=== PATIENT | male | born 1970 | race American Indian/Alaskan Native ===

== ENCOUNTER 2021-09-02 08:02 | Observation (INO) | payer BC ==
[2021-09-02] MEDS ORDERED: SODIUM CHLORIDE 0.9% 1000 ML 1,000 ML IV ONE ×5 (08:34→14:47)
--- NOTE | 2021-09-02 09:36 | Emergency Department Report ---
ED Eye Problem HPI - General Chief complaint: Hyperglycemia Stated complaint: UNABLE TO SEE Time Seen by Provider: 09/02/21 08:37 Source: patient, family Mode of arrival: Ambulatory Limitations: Other - History of Present Illness Initial comments: 51-year-old male with a past medical history of obesity, hypertension, CAD with stent placement, and asthma presents to the hospital with complaints of visual changes progressively worsening for several days. Patient states his vision has been blurry for the last 3 days but today while at work he was unable to see anything but colors. Patient states he cannot define shapes. For last several weeks he has had increased thirst, polyuria, and polydipsia. Accu-Chek upon arrival is high. No previous diagnosis of diabetes prior to today. Patient was here August 17 under the name: Dhruv Stephen III with an alternative medical record number. Use prescribed empiric antibiotics for tonsillitis at that time and hydrocodone for pain. Patient discontinued medication because he felt they were causing his current symptoms. He does report that his dental pain did improve. No fever reported - Related Data Allergies Allergy/AdvReac Type Severity Reaction Status Date / Time No Known Allergies Allergy Unverified 09/02/21 08:31 ED Review of Systems ROS: Stated complaint: UNABLE TO SEE Other details as noted in HPI Comment: All other systems reviewed and negative ED Past Medical Hx - Past Medical History Previous Medical History?: Yes Hx Hypertension: Yes Hx Asthma: Yes - Surgical History Hx Coronary Stent: Yes - Social History Smoking Status: Current Every Day Smoker Substance Use Type: None ED Physical Exam - General Limitations: Other - Other Other exam information: General: No acute distress Head: Atraumatic Eyes: normal appearance ENT: Dry mucous membrane Neck: Normal appearance, no midline tenderness Chest: Clear to auscultation bilaterally CV: Regular rate and rhythm Abdomen: Soft, normal bowel sounds, nontender, nondistended, no rebound or gua rding Back: Normal inspection Extremity: Normal inspection, full range of motion Neuro: Alert O x 3, no facial asymmetry, speech clear, no gross motor sensory deficit Psych: Appropriate behavior Skin: No rash ED Course Vital Signs 09/02/21 09/02/21 09/02/21 08:22 08:57 08:59 Temperature 98.1 F Pulse Rate 88 78 75 Respiratory 20 13 12 Rate Blood Pressure 113/80 122/78 122/78 O2 Sat by Pulse 96 94 96 Oximetry 09/02/21 09/02/21 09/02/21 09:01 09:03 09:05 Temperature Pulse Rate 75 68 70 Respiratory 8 L 16 20 Rate Blood Pressure 122/78 122/78 122/78 O2 Sat by Pulse 96 94 93 Oximetry 09/02/21 09/02/21 09/02/21 09:07 09:09 09:11 Temperature Pulse Rate 69 72 73 Respiratory 19 17 20 Rate Blood Pressure 122/78 122/78 122/78 O2 Sat by Pulse 93 94 95 Oximetry 09/02/21 09/02/21 09/02/21 09:13 09:15 09:17 Temperature Pulse Rate 69 68 75 Respiratory 20 21 17 Rate Blood Pressure 122/78 122/78 122/78 O2 Sat by Pulse 92 93 91 Oximetry 09/02/21 09/02/21 09/02/21 09:19 09:21 09:23 Temperature Pulse Rate 73 73 74 Respiratory 18 17 21 Rate Blood Pressure 122/78 122/78 122/78 O2 Sat by Pulse 92 95 96 Oximetry 09/02/21 09/02/21 09/02/21 09:24 09:25 09:27 Temperature Pulse Rate 73 73 71 Respiratory 18 15 15 Rate Blood Pressure 135/89 135/89 135/89 O2 Sat by Pulse 94 95 94 Oximetry 09/02/21 09/02/21 09/02/21 09:29 09:31 09:33 Temperature Pulse Rate 81 71 65 Respiratory 19 18 15 Rate Blood Pressure 135/89 135/89 135/89 O2 Sat by Pulse 95 97 97 Oximetry 09/02/21 09/02/21 09/02/21 09:35 09:37 09:39 Temperature Pulse Rate 73 77 74 Respiratory 18 20 13 Rate Blood Pressure 135/89 135/89 135/89 O2 Sat by Pulse 95 96 95 Oximetry 09/02/21 09/02/21 09/02/21 09:41 09:43 09:45 Temperature Pulse Rate 88 77 68 Respiratory 25 H 15 19 Rate Blood Pressure 135/89 135/89 135/89 O2 Sat by Pulse 94 93 93 Oximetry 09/02/21 09/02/21 09/02/21 09:47 10:15 10:17 Temperature Pulse Rate 72 68 71 Respiratory 12 19 17 Rate Blood Pressure 135/89 141/94 141/94 O2 Sat by Pulse 96 88 93 Oximetry 09/02/21 09/02/21 09/02/21 10:19 10:21 10:23 Temperature Pulse Rate 73 71 71 Respiratory 18 21 15 Rate Blood Pressure 141/94 141/94 141/94 O2 Sat by Pulse 93 91 96 Oximetry 09/02/21 09/02/21 09/02/21 10:24 10:25 10:27 Temperature Pulse Rate 69 72 75 Respiratory 14 13 16 Rate Blood Pressure 126/77 126/77 126/77 O2 Sat by Pulse 94 94 94 Oximetry 09/02/21 09/02/21 09/02/21 10:29 10:31 10:33 Temperature Pulse Rate 69 68 62 Respiratory 13 13 21 Rate Blood Pressure 126/77 126/77 126/77 O2 Sat by Pulse 93 96 96 Oximetry 09/02/21 09/02/21 09/02/21 10:35 10:37 10:39 Temperature Pulse Rate 76 77 73 Respiratory 23 17 21 Rate Blood Pressure 126/77 126/77 126/77 O2 Sat by Pulse 94 97 93 Oximetry 09/02/21 09/02/21 09/02/21 10:41 10:43 10:45 Temperature Pulse Rate 81 70 64 Respiratory 14 15 15 Rate Blood Pressure 126/77 126/77 126/77 O2 Sat by Pulse 95 94 91 Oximetry 09/02/21 09/02/21 09/02/21 10:47 10:49 10:51 Temperature Pulse Rate 66 70 77 Respiratory 16 15 17 Rate Blood Pressure 126/77 126/77 126/77 O2 Sat by Pulse 93 97 96 Oximetry 09/02/21 09/02/21 09/02/21 10:53 10:54 10:55 Temperature Pulse Rate 65 71 68 Respiratory 19 17 19 Rate Blood Pressure 126/77 120/76 120/76 O2 Sat by Pulse 95 93 94 Oximetry 09/02/21 09/02/21 09/02/21 10:57 10:59 11:01 Temperature Pulse Rate 68 75 61 Respiratory 18 21 19 Rate Blood Pressure 120/76 120/76 120/76 O2 Sat by Pulse 95 93 94 Oximetry 09/02/21 09/02/21 09/02/21 11:03 11:05 11:07 Temperature Pulse Rate 74 77 71 Respiratory 18 22 20 Rate Blood Pressure 120/76 120/76 120/76 O2 Sat by Pulse 94 92 90 Oximetry 09/02/21 09/02/21 09/02/21 11:09 11:11 11:13 Temperature Pulse Rate 73 68 67 Respiratory 20 16 20 Rate Blood Pressure 120/76 120/76 120/76 O2 Sat by Pulse 92 91 93 Oximetry 09/02/21 09/02/21 09/02/21 11:15 11:17 11:19 Temperature Pulse Rate 71 65 71 Respiratory 19 15 18 Rate Blood Pressure 120/76 120/76 120/76 O2 Sat by Pulse 95 95 96 Oximetry 09/02/21 09/02/21 09/02/21 11:21 11:23 11:24 Temperature Pulse Rate 71 71 75 Respiratory 15 21 19 Rate Blood Pressure 120/76 120/76 130/88 O2 Sat by Pulse 92 93 97 Oximetry 09/02/21 09/02/21 09/02/21 11:25 11:27 11:29 Temperature Pulse Rate 73 78 69 Respiratory 17 19 18 Rate Blood Pressure 130/88 130/88 130/88 O2 Sat by Pulse 97 95 94 Oximetry 09/02/21 09/02/21 09/02/21 11:31 11:33 11:35 Temperature Pulse Rate 66 75 72 Respiratory 17 19 17 Rate Blood Pressure 130/88 130/88 130/88 O2 Sat by Pulse 93 95 97 Oximetry 09/02/21 09/02/21 09/02/21 11:37 11:39 11:41 Temperature Pulse Rate 77 77 77 Respiratory 18 17 18 Rate Blood Pressure 130/88 130/88 130/88 O2 Sat by Pulse 96 95 96 Oximetry 09/02/21 09/02/21 09/02/21 11:43 11:45 11:47 Temperature Pulse Rate 87 73 73 Respiratory 14 10 L 16 Rate Blood Pressure 130/88 130/88 130/88 O2 Sat by Pulse 97 97 96 Oximetry 09/02/21 09/02/21 09/02/21 11:49 11:51 11:53 Temperature Pulse Rate 74 78 74 Respiratory 18 14 18 Rate Blood Pressure 130/88 130/88 130/88 O2 Sat by Pulse 93 94 93 Oximetry 09/02/21 09/02/21 09/02/21 11:54 11:55 11:57 Temperature Pulse Rate 77 72 78 Respiratory 17 19 13 Rate Blood Pressure 133/88 133/88 133/88 O2 Sat by Pulse 96 94 95 Oximetry 03/09/02/21 09/02/21 11:59 12:01 12:03 Temperature Pulse Rate 84 74 74 Respiratory 20 20 15 Rate Blood Pressure 133/88 133/88 133/88 O2 Sat by Pulse 94 97 94 Oximetry 09/02/21 09/02/21 09/02/21 12:05 12:07 12:09 Temperature Pulse Rate 73 74 74 Respiratory 10 L 9 L 10 L Rate Blood Pressure 133/88 133/88 133/88 O2 Sat by Pulse 95 96 96 Oximetry 09/02/21 09/02/21 09/02/21 12:11 12:13 12:15 Temperature Pulse Rate 76 68 74 Respiratory 9 L 8 L 9 L Rate Blood Pressure 133/88 133/88 133/88 O2 Sat by Pulse 96 94 97 Oximetry 09/02/21 09/02/21 09/02/21 12:17 12:19 12:21 Temperature Pulse Rate 75 75 77 Respiratory 14 17 17 Rate Blood Pressure 133/88 133/88 133/88 O2 Sat by Pulse 97 97 97 Oximetry 09/02/21 09/02/21 09/02/21 12:23 12:24 12:25 Temperature Pulse Rate 76 76 74 Respiratory 18 20 18 Rate Blood Pressure 133/88 119/84 119/84 O2 Sat by Pulse 97 96 97 Oximetry 09/02/21 09/02/21 09/02/21 12:27 12:29 12:31 Temperature Pulse Rate 74 76 84 Respiratory 19 19 15 Rate Blood Pressure 119/84 119/84 119/84 O2 Sat by Pulse 97 96 95 Oximetry 09/02/21 09/02/21 09/02/21 12:33 12:35 12:37 Temperature Pulse Rate 74 69 76 Respiratory 15 18 19 Rate Blood Pressure 119/84 119/84 119/84 O2 Sat by Pulse 99 96 97 Oximetry 09/02/21 09/02/21 09/02/21 12:39 12:41 12:43 Temperature Pulse Rate 76 74 78 Respiratory 12 18 16 Rate Blood Pressure 119/84 119/84 119/84 O2 Sat by Pulse 95 95 97 Oximetry 09/02/21 09/02/21 09/02/21 12:45 12:47 12:49 Temperature Pulse Rate 70 74 72 Respiratory 18 18 13 Rate Blood Pressure 119/84 119/84 119/84 O2 Sat by Pulse 96 97 97 Oximetry 0309/02/21 09/02/21 12:51 12:53 12:54 Temperature Pulse Rate 83 74 69 Respiratory 17 17 20 Rate Blood Pressure 119/84 119/84 123/90 O2 Sat by Pulse 98 94 97 Oximetry 09/02/21 09/02/21 09/02/21 12:55 12:57 12:59 Temperature Pulse Rate 68 74 73 Respiratory 14 20 15 Rate Blood Pressure 123/90 123/90 123/90 O2 Sat by Pulse 96 97 95 Oximetry 09/02/21 09/02/21 09/02/21 13:01 13:03 13:05 Temperature Pulse Rate 73 74 73 Respiratory 14 17 16 Rate Blood Pressure 123/90 123/90 123/90 O2 Sat by Pulse 96 98 97 Oximetry 09/02/21 09/02/21 09/02/21 13:07 13:09 13:11 Temperature Pulse Rate 68 69 67 Respiratory 19 16 18 Rate Blood Pressure 123/90 123/90 123/90 O2 Sat by Pulse 98 97 97 Oximetry 09/02/21 09/02/21 09/02/21 13:13 13:15 13:17 Temperature Pulse Rate 68 71 70 Respiratory 17 19 18 Rate Blood Pressure 123/90 123/90 123/90 O2 Sat by Pulse 96 97 96 Oximetry 09/02/21 09/02/21 13:19 13:21 Temperature Pulse Rate 71 69 Respiratory 18 18 Rate Blood Pressure 123/90 123/90 O2 Sat by Pulse 97 97 Oximetry ED Medical Decision Making - Lab Data Result diagrams: 09/02/21 08:48 09/02/21 10:31 Lab Results 09/02/21 09/02/21 09/02/21 Range/Units 08:21 08:48 08:48 WBC 8.0 (4.5-11.0) K/mm3 RBC 5.56 H (3.65-5.03) M/mm3 Hgb 13.2 (11.8-15.2) gm/dl Hct 43.8 (35.5-45.6) % MCV 79 L (84-94) fl MCH 24 L (28-32) pg MCHC 30 L (32-34) % RDW 23.1 H (13.2-15.2) % Plt Count 246 (140-440) K/mm3 Lymph % (Auto) 17.3 (13.4-35.0) % [place] % (Auto) 11.4 H (0.0-7.3) % Eos % (Auto) 1.2 (0.0-4.3) % Baso % (Auto) 0.7 (0.0-1.8) % Lymph # (Auto) 1.4 (1.2-5.4) K/mm3 [place] # (Auto) 0.9 H (0.0-0.8) K/mm3 Eos # (Auto) 0.1 (0.0-0.4) K/mm3 Baso # (Auto) 0.1 (0.0-0.1) K/mm3 Seg Neutrophils % 69.4 (40.0-70.0) % Seg Neutrophils # 5.6 (1.8-7.7) K/mm3 VBG pH (7.320-7.420) Sodium TNR Potassium TNR Chloride TNR Carbon Dioxide TNR Anion Gap TNR BUN TNR Creatinine TNR Estimated GFR TNR BUN/Creatinine Ratio TNR Glucose TNR POC Glucose > 600 H (70-105) mg/dL Calcium TNR Phosphorus TNR Magnesium TNR Urine Color (Yellow) Urine Turbidity (Clear) Urine pH (5.0-7.0) Ur Specific [place] (1.003-1.030) Urine Protein (Negative) mg/dL Urine Glucose (UA) (Negative) mg/dL Urine Ketones (Negative) mg/dL Urine Blood (Negative) Urine Nitrite (Negative) Urine Bilirubin (Negative) Urine Urobilinogen (<2.0) mg/dL Ur Leukocyte Esterase (Negative) Urine WBC (Auto) (0.0-6.0) /HPF Urine RBC (Auto) (0.0-6.0) /HPF U Epithel Cells (Auto) (0-13.0) /HPF 09/02/21 09/02/21 09/02/21 Range/Units 08:48 09:48 10:31 WBC (4.5-11.0) K/mm3 RBC (3.65-5.03) M/mm3 Hgb (11.8-15.2) gm/dl Hct (35.5-45.6) % MCV (84-94) fl MCH (28-32) pg MCHC (32-34) % RDW (13.2-15.2) % Plt Count (140-440) K/mm3 Lymph % (Auto) (13.4-35.0) % [place] % (Auto) (0.0-7.3) % Eos % (Auto) (0.0-4.3) % Baso % (Auto) (0.0-1.8) % Lymph # (Auto) (1.2-5.4) K/mm3 [place] # (Auto) (0.0-0.8) K/mm3 Eos # (Auto) (0.0-0.4) K/mm3 Baso # (Auto) (0.0-0.1) K/mm3 Seg Neutrophils % (40.0-70.0) % Seg Neutrophils # (1.8-7.7) K/mm3 VBG pH 7.335 (7.320-7.420) Sodium 127 L Potassium 5.2 H Chloride 91.3 L Carbon Dioxide 25 Anion Gap 16 BUN 12 Creatinine 1.3 Estimated GFR > 60 BUN/Creatinine Ratio 9 Glucose 1105 H* POC Glucose (70-105) mg/dL Calcium 9.0 Phosphorus 4.30 Magnesium 2.40 H Urine Color Colorless (Yellow) Urine Turbidity Clear (Clear) Urine pH 6.0 (5.0-7.0) Ur Specific [place] 1.026 (1.003-1.030) Urine Protein <15 mg/dl (Negative) mg/dL Urine Glucose (UA) >=500 (Negative) mg/dL Urine Ketones Neg (Negative) mg/dL Urine Blood Mod (Negative) Urine Nitrite Neg (Negative) Urine Bilirubin Neg (Negative) Urine Urobilinogen < 2.0 (<2.0) mg/dL Ur Leukocyte Esterase Neg (Negative) Urine WBC (Auto) 6.0 (0.0-6.0) /HPF Urine RBC (Auto) 5.0 (0.0-6.0) /HPF U Epithel Cells (Auto) 1.0 (0-13.0) /HPF - Medical Decision Making 51-year-old male presents to the hospital with new onset diabetes with visual changes, polydipsia, and increased thirst secondary to severe hyperglycemia. Patient treated aggressive IV fluid hydration in the ED and insulin therapy. Labs do not suggest DKA. Patient will be admitted to the hospital for further treatment Critical care attestation.: If time is entered above; I have spent that time in minutes in the direct care of this critically ill patient, excluding procedure time. ED Disposition Clinical Impression: Diabetes mellitus, new onset, Hyperglycemia due to diabetes mellitus, Visual disturbance, Obesity Disposition: 09 ADMITTED INPATIENT Is pt being admited?: Yes Condition: Stable Instructions: Diabetes Mellitus Type 2 in Adults (ED) Referrals: ANNITA LOONEY MD [Primary Care Provider] - 3-5 Days
[2021-09-02 09:55] LABS: Hemolysis Index 1997
[2021-09-02 10:10] LABS: BUN/Creatinine Ratio TNR; Blood Urea Nitrogen TNR mg/dL (9-20)
[2021-09-02 10:11] LABS: Calcium TNR mg/dL (8.4-10.2)
[2021-09-02 10:31] LABS: Basophils # (Auto) 0.1 K/mm3 (0.0-0.1); Basophils % (Auto) 0.7 % (0.0-1.8); Eosinophils # (Auto) 0.1 K/mm3 (0.0-0.4); Eosinophils % (Auto) 1.2 % (0.0-4.3); Hematocrit 43.8 % (35.5-45.6); Hemoglobin 13.2 gm/dl (11.8-15.2); Lymphocytes # (Auto) 1.4 K/mm3 (1.2-5.4); Lymphocytes % (Auto) 17.3 % (13.4-35.0); Mean Corpuscular HGB Conc 30 % (32-34); Mean Corpuscular Volume 79 fl (84-94); Monocytes # (Auto) 0.9 K/mm3 (0.0-0.8); Monocytes % (Auto) 11.4 % (0.0-7.3); Platelet Count 246 K/mm3 (140-440); Red Blood Count 5.56 M/mm3 (3.65-5.03); Red Cell Distribution Width 23.1 % (13.2-15.2)
[2021-09-02 11:11] LABS: BUN/Creatinine Ratio 9; Blood Urea Nitrogen 12 mg/dL (9-20); Hemolysis Index 0
[2021-09-02] MEDS ORDERED: INSULIN REGULAR, HUMAN 100 UNITS/1 ML IV ONE ×2 (11:14→13:31)
[2021-09-02 12:35] LABS: Bilirubin,Urine NEG (Negative); Blood,Urine MOD (Negative); Color,Urine Colorless (Yellow); Protein,Urine <15 mg/dL mg/dL (Negative); Urobilinogen,Urine < 2.0 mg/dL (<2.0)
[2021-09-02] MEDS ORDERED: SODIUM CHLORIDE 0.9% 1000 ML 1,000 ML IV SCH (13:45)
[2021-09-02] MEDS ORDERED: oxyCODONE /ACETAMINOPHEN 5-325MG TAB PO PRN (14:44)
[2021-09-02] MEDS ORDERED: MORPHINE 2 MG/1 ML INJ IV PRN (14:44)
[2021-09-02] MEDS ORDERED: ACETAMINOPHEN 325 MG TAB PO PRN (14:44)
[2021-09-02] MEDS ORDERED: ONDANSETRON 4 MG/2 ML INJ IV PRN (14:44)
[2021-09-02] MEDS ORDERED: DEXTROSE 50% IN WATER (25GM) 50 ML SYRINGE IV PRN (14:47)
[2021-09-02] MEDS ORDERED: DEXTROSE 10% *Hypoglycemia IV PRN (14:55)
[2021-09-02] MEDS ORDERED: INSULIN REGULAR, HUMAN 100 UNITS in SODIUM CHLORIDE 0.9% 99 ML IV SCH (15:00)
[2021-09-02] MEDS ORDERED: D5W/0.45% NACL/KCL 20 MEQ 20 MEQ/1,000 ML BAG IV SCH (15:00)
[2021-09-02 23:08] LABS: BUN/Creatinine Ratio 8; Blood Urea Nitrogen 10 mg/dL (9-20); Calcium 9.2 mg/dL (8.4-10.2); Hemolysis Index 16
[2021-09-03 01:51] LABS: BUN/Creatinine Ratio 9; Blood Urea Nitrogen 10 mg/dL (9-20); Calcium 9.2 mg/dL (8.4-10.2); Hemolysis Index 58
[2021-09-03] MEDS ORDERED: DEXTROSE 50% IN WATER (25GM) 50 ML SYRINGE IV PRN (03:37)
[2021-09-03 03:55] LABS: ABG Base Excess 0.2 mmol/L (-2.0-3.0); ABG HCO3 25.1 mmol/L (20.0-26.0); ABG Methemoglobin 0.5 % (0.0-1.5); ABG Oxygen Saturation 94.7 % (95.0-99.0); ABG PCO2 41.7 mm Hg; ABG PH 7.398 pH Units (7.350-7.450)
[2021-09-03] MEDS: HEPARIN 5,000 UNIT/1 ML VIAL SUB-Q SCH ×4 (05:31→22:58)
[2021-09-03 05:49] LABS: Basophils # (Auto) 0.1 K/mm3 (0.0-0.1); Basophils % (Auto) 0.8 % (0.0-1.8); Eosinophils # (Auto) 0.3 K/mm3 (0.0-0.4); Eosinophils % (Auto) 2.7 % (0.0-4.3); Lymphocytes # (Auto) 3.2 K/mm3 (1.2-5.4); Lymphocytes % (Auto) 27.9 % (13.4-35.0); Mean Corpuscular HGB Conc 31 % (32-34); Mean Corpuscular Volume 75 fl (84-94); Monocytes # (Auto) 1.2 K/mm3 (0.0-0.8); Monocytes % (Auto) 10.7 % (0.0-7.3); Platelet Count 235 K/mm3 (140-440); Red Blood Count 5.74 M/mm3 (3.65-5.03)
[2021-09-03 05:53] LABS: Hematocrit 43.2 % (35.5-45.6); Hemoglobin 13.3 gm/dl (11.8-15.2)
--- NOTE | 2021-09-03 05:56 | History and Physical Report ---
History of Present Illness Date of examination: 09/02/21 Date of admission: 09/02/21 14:44 Chief complaint: Unable to see--blurred vision for 3 days History of present illness: 51-year-old male with a past medical history of obesity, hypertension, CAD with stent placement, and asthma presents to the hospital with complaints of visual changes progressively worsening for several days. Patient states his vision has been blurry for the last 3 days but today while at work he was unable to see anything but colors. Patient states he cannot define shapes. For last several weeks he has had increased thirst, polyuria, and polydipsia. Accu-Chek upon arrival is high. No previous diagnosis of diabetes prior to today. Patient was here August 17 under the name: Dhruv Stephen III with an alternative medical record number. Use prescribed empiric antibiotics for tonsillitis at that time and hydrocodone for pain. Patient discontinued medication because he felt they were causing his current symptoms. He does report that his dental pain did improve. No fever reported - Related Data Allergies Allergy/AdvReac Type Severity Reaction Status Date / Time No Known Allergies Allergy Unverified 09/02/21 08:31 - Past Medical History --Previous Medical History?: Yes --Hypertension: Yes --Asthma: Yes - Surgical History --Coronary Stent: Yes - Social History Smoking Status: Current Every Day Smoker Substance Use Type: None Review of Systems ROS: Stated complaint: UNABLE TO SEE Other details as noted in HPI Comment: All other systems reviewed and negative Medications and Allergies Allergies Allergy/AdvReac Type Severity Reaction Status Date / Time No Known Allergies Allergy Unverified 09/02/21 08:31 Home Medications Medication Instructions Recorded Confirmed Last Taken Type No Known Home Medications [No 09/03/21 09/03/21 Unknown History Reported Home Medications] Active Meds: Active Medications Acetaminophen (Acetaminophen 325 Mg Tab) 650 mg PO Q4H PRN PRN Reason: Pain MILD(1-3)/Fever >100.5/CARDENAS Dextrose (Dextrose 10% *Hypoglycemia) 0 ml IV PRN PRN PRN Reason: Hypoglycemia Heparin Sodium (Porcine) (Heparin 5,000 Unit/1 Ml Vial) 5,000 unit SUB-Q Q12HR [facility] Last Admin: 09/03/21 05:32 Dose: Not Given Sodium Chloride (Nacl 0.9% 1000 Ml) 1,000 mls @ 250 mls/hr IV DIRECT [facility] Potassium Chloride/Dextrose/Sod Cl (D5w/0.45% Nacl/Kcl 20 Meq) 20 meq in 1,000 mls @ 125 mls/hr IV DIRECT QUINCY Sodium Chloride (Nacl 0.9% 1000 Ml) 1,000 mls @ 100 mls/hr IV DIRECT [facility] Insulin Glargine (Insulin Glargine 100 Units/Ml) 20 units SUB-Q QHS [facility] Insulin Human Lispro (Insulin Lispro 100 Unit/Ml) 0 unit SUB-Q Q6HR QUINCY; Protocol Morphine Sulfate (Morphine 2 Mg/1 Ml Inj) 2 mg IV Q4H PRN PRN Reason: Pain, Moderate (4-6) Ondansetron HCl (Ondansetron 4 Mg/2 Ml Inj) 4 mg IV Q8H PRN PRN Reason: Nausea And Vomiting Oxycodone/Acetaminophen (Oxycodone /Acetaminophen 5-325mg Tab) 1 tab PO Q6H PRN PRN Reason: Pain, Moderate (4-6) Sodium Chloride (Sodium Chloride 0.9% 10 Ml Flush Syringe) 10 ml IV BID [facility] Last Admin: 09/03/21 05:33 Dose: Not Given Sodium Chloride (Sodium Chloride 0.9% 10 Ml Flush Syringe) 10 ml IV PRN PRN PRN Reason: LINE FLUSH Exam - Constitutional Vitals: Temp Pulse Resp BP Pulse Ox 98.1 F 70 16 145/90 98 09/02/21 08:22 09/03/21 03:34 09/03/21 03:34 09/03/21 03:34 09/03/21 03:34 General appearance: Present: no acute distress, well-nourished - EENT Eyes: Present: PERRL ENT: hearing intact, clear oral mucosa - Neck Neck: Present: supple, normal ROM - Respiratory Respiratory effort: normal Respiratory: bilateral: CTA - Cardiovascular Heart rate: 98 Rhythm: regular Heart Sounds: Present: S1 & S2. Absent: rub, click - Extremities Extremities: pulses symmetrical, No edema Peripheral Pulses: within normal limits - Abdominal General gastrointestinal: Present: soft, non-tender, non-distended, normal bowel sounds Male genitourinary: Present: normal - Integumentary Integumentary: Present: clear, warm, dry - Musculoskeletal Musculoskeletal: gait normal, strength equal bilaterally - Psychiatric Psychiatric: appropriate mood/affect, intact judgment & insight - Neurologic Neurologic: CNII-XII intact, moves all extremities Results - Labs CBC & Chem 7: 09/02/21 08:48 09/03/21 01:06 Labs: Laboratory Last Values WBC 8.0 K/mm3 (4.5-11.0) 09/02/21 08:48 RBC 5.56 M/mm3 (3.65-5.03) H 09/02/21 08:48 Hgb 13.2 gm/dl (11.8-15.2) 09/02/21 08:48 Hct 43.8 % (35.5-45.6) 09/02/21 08:48 MCV 79 fl (84-94) L 09/02/21 08:48 MCH 24 pg (28-32) L 09/02/21 08:48 MCHC 30 % (32-34) L 09/02/21 08:48 RDW 23.1 % (13.2-15.2) H 09/02/21 08:48 Plt Count 246 K/mm3 (140-440) 09/02/21 08:48 Lymph % (Auto) 17.3 % (13.4-35.0) 09/02/21 08:48 [place] % (Auto) 10.7 % (0.0-7.3) H 09/03/21 05:04 Eos % (Auto) 2.7 % (0.0-4.3) 09/03/21 05:04 Baso % (Auto) 0.7 % (0.0-1.8) 09/02/21 08:48 Lymph # (Auto) 1.4 K/mm3 (1.2-5.4) 09/02/21 08:48 [place] # (Auto) 1.2 K/mm3 (0.0-0.8) H 09/03/21 05:04 Eos # (Auto) 0.3 K/mm3 (0.0-0.4) 09/03/21 05:04 Baso # (Auto) 0.1 K/mm3 (0.0-0.1) 09/03/21 05:04 Seg Neutrophils % 57.9 % (40.0-70.0) 09/03/21 05:04 Seg Neutrophils # 6.6 K/mm3 (1.8-7.7) 09/03/21 05:04 ABG pH 7.398 pH Units (7.350-7.450) 09/03/21 03:20 ABG pCO2 41.7 mm Hg 09/03/21 03:20 ABG pO2 66.0 mm Hg (80.0-90.0) L 09/03/21 03:20 ABG HCO3 25.1 mmol/L (20.0-26.0) 09/03/21 03:20 ABG O2 Saturation 94.7 % (95.0-99.0) L 09/03/21 03:20 ABG O2 Content 16.9 (0.0-44) 09/03/21 03:20 ABG Base Excess 0.2 mmol/L (-2.0-3.0) 09/03/21 03:20 ABG Hemoglobin 13.0 gm/dl (14.0-18.0) L 09/03/21 03:20 ABG Carboxyhemoglobin 2.1 % (0.0-5.0) 09/03/21 03:20 ABG Methemoglobin 0.5 % (0.0-1.5) 09/03/21 03:20 VBG pH 7.335 (7.320-7.420) 09/02/21 08:48 Oxyhemoglobin 92.2 % (95.0-99.0) L 09/03/21 03:20 FiO2 21 % 09/03/21 03:20 Sodium 134 mmol/L (137-145) L 09/03/21 01:06 Potassium 4.4 mmol/L (3.6-5.0) 09/03/21 01:06 Chloride 99.6 mmol/L (98-107) 09/03/21 01:06 Carbon Dioxide 23 mmol/L (22-30) 09/03/21 01:06 Anion Gap 16 mmol/L 09/03/21 01:06 BUN 10 mg/dL (9-20) 09/03/21 01:06 Creatinine 1.1 mg/dL (0.8-1.3) 09/03/21 01:06 Estimated GFR > 60 ml/min 09/03/21 01:06 BUN/Creatinine Ratio 9 % 09/03/21 01:06 Glucose 428 mg/dL (75-100) H 09/03/21 01:06 POC Glucose 371 mg/dL (70-105) H 09/03/21 04:11 Calcium 9.2 mg/dL (8.4-10.2) 09/03/21 01:06 Phosphorus 3.20 mg/dL (2.5-4.5) D 09/02/21 22:12 Magnesium 2.20 mg/dL (1.7-2.3) 09/02/21 22:12 Urine Color Colorless (Yellow) 09/02/21 09:48 Urine Turbidity Clear (Clear) 09/02/21 09:48 Urine pH 6.0 (5.0-7.0) 09/02/21 09:48 Ur Specific [place] 1.026 (1.003-1.030) 09/02/21 09:48 Urine Protein <15 mg/dl mg/dL (Negative) 09/02/21 09:48 Urine Glucose (UA) >=500 mg/dL (Negative) 09/02/21 09:48 Urine Ketones Neg mg/dL (Negative) 09/02/21 09:48 Urine Blood Mod (Negative) 09/02/21 09:48 Urine Nitrite Neg (Negative) 09/02/21 09:48 Urine Bilirubin Neg (Negative) 09/02/21 09:48 Urine Urobilinogen < 2.0 mg/dL (<2.0) 09/02/21 09:48 Ur Leukocyte Esterase Neg (Negative) 09/02/21 09:48 Urine WBC (Auto) 6.0 /HPF (0.0-6.0) 09/02/21 09:48 Urine RBC (Auto) 5.0 /HPF (0.0-6.0) 09/02/21 09:48 U Epithel Cells (Auto) 1.0 /HPF (0-13.0) 09/02/21 09:48 Short CBC 09/02/21 09/03/21 Range/Units 08:48 05:04 WBC 8.0 11.4 H (4.5-11.0) K/mm3 Hgb 13.2 13.3 (11.8-15.2) gm/dl Hct 43.8 43.2 (35.5-45.6) % Plt Count 246 235 (140-440) K/mm3 BMP 09/02/21 09/02/2109/02/22 08:48 10:31 22:12 Sodium TNR 127 L 135 L D Potassium TNR 5.2 H 4.3 Chloride TNR 91.3 L 97.9 L Carbon Dioxide TNR 25 27 BUN TNR 12 10 Creatinine TNR 1.3 1.2 Glucose TNR 1105 H* 458 H Calcium TNR 9.0 9.2 09/03/21 01:06 Sodium 134 L Potassium 4.4 Chloride 99.6 Carbon Dioxide 23 BUN 10 Creatinine 1.1 Glucose 428 H Calcium 9.2 Urine 09/02/21 Range/Units 09:48 Urine Color Colorless (Yellow) Urine pH 6.0 (5.0-7.0) Ur Specific [place] 1.026 (1.003-1.030) Urine Protein <15 mg/dl (Negative) mg/dL Urine Glucose (UA) >=500 (Negative) mg/dL Assessment and Plan Advance Directives: Yes (Full code) VTE prophylaxis?: Chemical Plan of care discussed with patient/family: Yes - Patient Problems (1) Hyperosmolar non-ketotic state due to type 2 diabetes mellitus Current Visit: Yes Status: Acute Plan to address problem: DKA protocol for now No DKA Hyperosmolar state and diabetes-nonketotic and not in coma IV insulin IV fluids for now No metabolic acidosis No ketones in the urine Transition him to long-acting in a.m. and short acting insulin before each sara Counseled about diabetes Dietitian consult ICU admission because of IV insulin (2) Visual disturbance Current Visit: Yes Status: Acute Plan to address problem: Secondary to high glucose levels causing increased density of the ocular lens--- retaining more fluid Should resolve with correction of blood glucose levels but may take 1 to 2 weeks Patient also to see ophthalmology for visualizing the retina and the need for eyeglasses Visual disturbance will improve with correction of blood glucose levels No acute injury (3) Hypertension Current Visit: Yes Status: Chronic Qualifiers: Hypertension type: primary hypertension Qualified Code(s): I10 - Essential (primary) hypertension Plan to address problem: Continue antihypertensives and adjust medications (4) DVT prophylaxis Current Visit: Yes Status: Acute Plan to address problem: On heparin and GI prophylaxis (5) Advance care planning Current Visit: Yes Status: Acute Plan to address problem: Disease education conducted, care plan discussed, diagnosis discussed, prognosis discussed. Patient is full code. Patient acknowledges understanding and agreement with care plan +30 minutes.
[2021-09-03 06:04] LABS: Alanine Aminotransferase 46 units/L (7-56); Albumin 3.5 g/dL (3.9-5); BUN/Creatinine Ratio 9; Blood Urea Nitrogen 9 mg/dL (9-20); Calcium 9.3 mg/dL (8.4-10.2); Hemolysis Index 51
[2021-09-03] MEDS: INSULIN LISPRO 100 UNIT/ML SUB-Q SCH ×4 (06:50→23:06)
[2021-09-03] MEDS ORDERED: INSULIN REGULAR, HUMAN 100 UNITS/1 ML IV ONE ×4 (07:59→18:08)
[2021-09-03] MEDS ORDERED: INSULIN REGULAR, HUMAN 100 UNITS/1 ML IV NR (08:30)
--- NOTE | 2021-09-03 09:01 | Progress Note ---
Assessment and Plan Assessment and plan: History of present illness: 51-year-old male with a past medical history of obesity, hypertension, CAD with stent placement, and asthma presents to the hospital with complaints of visual changes progressively worsening for several days. Patient states his vision has been blurry for the last 3 days but today while at work he was unable to see anything but colors. Patient states he cannot define shapes. For last several weeks he has had increased thirst, polyuria, and polydipsia. Accu-Chek upon arrival is high. No previous diagnosis of diabetes prior to today. Patient was here August 17 under the name: Dhruv Stephen III with an alternative medical record number. Use prescribed empiric antibiotics for tonsillitis at that time and hydrocodone for pain. Patient discontinued medication because he felt they were causing his current symptoms. He does report that his dental pain did improve. No fever reported Hospital Course to date: 09/03: Assessment and Plan (1) Hyperosmolar non-ketotic state due to type 2 diabetes mellitus Current Visit: Yes Status: Acute Plan to address problem: DKA protocol for now No DKA Hyperosmolar state and diabetes-nonketotic and not in coma IV insulin IV fluids for now No metabolic acidosis No ketones in the urine Transition him to long-acting in a.m. and short acting insulin before each sara Counseled about diabetes Dietitian consult ICU admission because of IV insulin (2) Visual disturbance Current Visit: Yes Status: Acute Plan to address problem: Secondary to high glucose levels causing increased density of the ocular lens--- retaining more fluid Should resolve with correction of blood glucose levels but may take 1 to 2 weeks Patient also to see ophthalmology for visualizing the retina and the need for eyeglasses Visual disturbance will improve with correction of blood glucose levels No acute injury (3) Hypertension Current Visit: Yes Status: Chronic Qualifiers: Hypertension type: primary hypertension Qualified Code(s): I10 - Essential (primary) hypertension Plan to address problem: Continue antihypertensives and adjust medications (4) DVT prophylaxis Current Visit: Yes Status: Acute Plan to address problem: On heparin and GI prophylaxis (5) Advance care planning Current Visit: Yes Status: Acute Plan to address problem: Disease education conducted, care plan discussed, diagnosis discussed, prognosis discussed. Patient is full code. Patient acknowledges understanding and agreement with care plan +30 minutes. Hospitalist Physical - Physical exam Narrative exam: General appearance: Present: no acute distress, well-nourished - EENT Eyes: Present: PERRL ENT: hearing intact, clear oral mucosa - Neck Neck: Present: supple, normal ROM - Respiratory Respiratory effort: normal Respiratory: bilateral: CTA - Cardiovascular Heart rate: 98 Rhythm: regular Heart Sounds: Present: S1 & S2. Absent: rub, click - Extremities Extremities: pulses symmetrical, No edema Peripheral Pulses: within normal limits - Abdominal General gastrointestinal: Present: soft, non-tender, non-distended, normal bowel sounds Male genitourinary: Present: normal - Integumentary Integumentary: Present: clear, warm, dry - Musculoskeletal Musculoskeletal: gait normal, strength equal bilaterally - Psychiatric Psychiatric: appropriate mood/affect, intact judgment & insight - Neurologic Neurologic: CNII-XII intact, moves all extremities - Constitutional Vitals: Temp Pulse Resp BP Pulse Ox 98.5 F 85 18 147/85 96 09/03/21 08:51 09/03/21 08:51 09/03/21 08:51 09/03/21 08:51 09/03/21 08:51 General appearance: Present: no acute distress, well-nourished Results - Labs CBC & Chem 7: 09/03/21 05:04 09/03/21 05:04 Labs: Laboratory Last Values WBC 11.4 K/mm3 (4.5-11.0) H 09/03/21 05:04 RBC 5.74 M/mm3 (3.65-5.03) H 09/03/21 05:04 Hgb 13.3 gm/dl (11.8-15.2) 09/03/21 05:04 Hct 43.2 % (35.5-45.6) 09/03/21 05:04 MCV 75 fl (84-94) L 09/03/21 05:04 MCH 23 pg (28-32) L 09/03/21 05:04 MCHC 31 % (32-34) L 09/03/21 05:04 RDW 21.0 % (13.2-15.2) H 09/03/21 05:04 Plt Count 235 K/mm3 (140-440) 09/03/21 05:04 Lymph % (Auto) 27.9 % (13.4-35.0) 09/03/21 05:04 Piatt % (Auto) 10.7 % (0.0-7.3) H 09/03/21 05:04 Eos % (Auto) 2.7 % (0.0-4.3) 09/03/21 05:04 Baso % (Auto) 0.8 % (0.0-1.8) 09/03/21 05:04 Lymph # (Auto) 3.2 K/mm3 (1.2-5.4) 09/03/21 05:04 Piatt # (Auto) 1.2 K/mm3 (0.0-0.8) H 09/03/21 05:04 Eos # (Auto) 0.3 K/mm3 (0.0-0.4) 09/03/21 05:04 Baso # (Auto) 0.1 K/mm3 (0.0-0.1) 09/03/21 05:04 Seg Neutrophils % 57.9 % (40.0-70.0) 09/03/21 05:04 Seg Neutrophils # 6.6 K/mm3 (1.8-7.7) 09/03/21 05:04 ABG pH 7.398 pH Units (7.350-7.450) 09/03/21 03:20 ABG pCO2 41.7 mm Hg 09/03/21 03:20 ABG pO2 66.0 mm Hg (80.0-90.0) L 09/03/21 03:20 ABG HCO3 25.1 mmol/L (20.0-26.0) 09/03/21 03:20 ABG O2 Saturation 94.7 % (95.0-99.0) L 09/03/21 03:20 ABG O2 Content 16.9 (0.0-44) 09/03/21 03:20 ABG Base Excess 0.2 mmol/L (-2.0-3.0) 09/03/21 03:20 ABG Hemoglobin 13.0 gm/dl (14.0-18.0) L 09/03/21 03:20 ABG Carboxyhemoglobin 2.1 % (0.0-5.0) 09/03/21 03:20 ABG Methemoglobin 0.5 % (0.0-1.5) 09/03/21 03:20 VBG pH 7.335 (7.320-7.420) 09/02/21 08:48 Oxyhemoglobin 92.2 % (95.0-99.0) L 09/03/21 03:20 FiO2 21 % 09/03/21 03:20 Sodium 137 mmol/L (137-145) 09/03/21 05:04 Potassium 4.6 mmol/L (3.6-5.0) 09/03/21 05:04 Chloride 99.9 mmol/L (98-107) 09/03/21 05:04 Carbon Dioxide 25 mmol/L (22-30) 09/03/21 05:04 Anion Gap 17 mmol/L 09/03/21 05:04 BUN 9 mg/dL (9-20) 09/03/21 05:04 Creatinine 1.0 mg/dL (0.8-1.3) 09/03/21 05:04 Estimated GFR > 60 ml/min 09/03/21 05:04 BUN/Creatinine Ratio 9 % 09/03/21 05:04 Glucose 404 mg/dL (75-100) H 09/03/21 05:04 POC Glucose 388 mg/dL (70-105) H 09/03/21 06:43 Calcium 9.3 mg/dL (8.4-10.2) 09/03/21 05:04 Phosphorus 3.20 mg/dL (2.5-4.5) D 09/02/21 22:12 Magnesium 2.20 mg/dL (1.7-2.3) 09/02/21 22:12 Total Bilirubin 0.60 mg/dL (0.1-1.2) 09/03/21 05:04 AST 46 units/L (5-40) H 09/03/21 05:04 ALT 46 units/L (7-56) 09/03/21 05:04 Alkaline Phosphatase 157 units/L (35-129) H 09/03/21 05:04 Total Protein 7.3 g/dL (6.3-8.2) 09/03/21 05:04 Albumin 3.5 g/dL (3.9-5) L 09/03/21 05:04 Albumin/Globulin Ratio 0.9 % 09/03/21 05:04 Urine Color Colorless (Yellow) 09/02/21 09:48 Urine Turbidity Clear (Clear) 09/02/21 09:48 Urine pH 6.0 (5.0-7.0) 09/02/21 09:48 Ur Specific Hawkins 1.026 (1.003-1.030) 09/02/21 09:48 Urine Protein <15 mg/dl mg/dL (Negative) 09/02/21 09:48 Urine Glucose (UA) >=500 mg/dL (Negative) 09/02/21 09:48 Urine Ketones Neg mg/dL (Negative) 09/02/21 09:48 Urine Blood Mod (Negative) 09/02/21 09:48 Urine Nitrite Neg (Negative) 09/02/21 09:48 Urine Bilirubin Neg (Negative) 09/02/21 09:48 Urine Urobilinogen < 2.0 mg/dL (<2.0) 09/02/21 09:48 Ur Leukocyte Esterase Neg (Negative) 09/02/21 09:48 Urine WBC (Auto) 6.0 /HPF (0.0-6.0) 09/02/21 09:48 Urine RBC (Auto) 5.0 /HPF (0.0-6.0) 09/02/21 09:48 U Epithel Cells (Auto) 1.0 /HPF (0-13.0) 09/02/21 09:48 Simon/IV: Voiding Method Urinal Active Medications - Current Medications Current Medications: Generic Name Dose Route Start Last Admin Trade Name Freq PRN Reason Stop Dose Admin Acetaminophen 650 mg 09/02/21 14:44 Acetaminophen 325 Mg Tab PO Q4H PRN Pain MILD(1-3)/Fever >100.5/CARDENAS Dextrose 0 ml 09/02/21 14:55 Dextrose 10% *Hypoglycemia IV PRN PRN Hypoglycemia Heparin Sodium (Porcine) 5,000 unit 09/02/21 15:00 09/03/21 05:32 Heparin 5,000 Unit/1 Ml Vial SUB-Q Not Given Q12HR [facility] Potassium Chloride/Dextrose/Sod Cl 20 meq in 1,000 mls @ 125 mls/hr 09/02/21 15:00 D5w/0.45% Nacl/Kcl 20 Meq IV DIRECT QUINCY Sodium Chloride 1,000 mls @ 100 mls/hr 09/03/21 02:45 Nacl 0.9% 1000 Ml IV DIRECT QUINCY Insulin Glargine 25 units 09/03/21 10:00 Insulin Glargine 100 Units/Ml SUB-Q BID QU[facility]CY Insulin Human Lispro 0 unit 09/03/21 06:00 09/03/21 06:50 Insulin Lispro 100 Unit/Ml SUB-Q 10 unit Q6HR [facility] Administration Protocol Insulin Human Regular 10 units 09/03/21 08:30 Insulin Regular, Human 100 Units/1 Ml IV 09/03/21 09:30 ONCE NR Insulin Human Regular 5 units 09/03/21 12:00 Insulin Regular, Human 100 Units/1 Ml SUB-Q Q6HR [facility] Morphine Sulfate 2 mg 09/02/21 14:44 Morphine 2 Mg/1 Ml Inj IV Q4H PRN Pain, Moderate (4-6) Ondansetron HCl 4 mg 09/02/21 14:44 Ondansetron 4 Mg/2 Ml Inj IV Q8H PRN Nausea And Vomiting Oxycodone/Acetaminophen 1 tab 09/02/21 14:44 Oxycodone /Acetaminophen 5-325mg Tab PO Q6H PRN Pain, Moderate (4-6) Sodium Chloride 10 ml 09/02/21 22:00 09/03/21 05:33 Sodium Chloride 0.9% 10 Ml Flush Syringe IV Not Given BID QUINCY Sodium Chloride 10 ml 09/02/21 14:44 Sodium Chloride 0.9% 10 Ml Flush Syringe IV PRN PRN LINE FLUSH Nutrition/Malnutrition Assess - Dietary Evaluation Nutrition/Malnutrition Findings: Nutrition Notes Start: 09/02/21 16:22 Freq: Status: Active Protocol: Document 09/02/21 16:22 AMRITA (Rec: 09/02/21 16:34 AMRITA [email or web address]) Nutrition Notes Need for Assessment generated from: MD Order,Education Initial or Follow up Brief Note Current Diagnosis Coronary Artery Disease, Diabetes,Hypertension Other Pertinent Diagnosis Visual Changes/New Onset Diabetes. Current Diet No current diet prescribed. Height 6 ft 3 in Weight 148.325 kg [place] Body Weight (kg) 89.09 BMI 40.8 Weight change and time frame None provided at admission. Weight Status Morbidly Obese Subjective/Other Information RD consult for Nutrition Education. No current diet prescribed. Pt still in ED, not a candidate for Nutrition Education at the time, will assess feasibility on F/U. Percent of energy/protein needs met: No current diet prescribed. Nutrition Intervention Follow-Up By: 09/07/21 Additional Comments Nutrition education will be provided on F/U, if feasible. Continue monitoring food tolerance, %PO intake of meals , and BM.
[2021-09-03] MEDS ORDERED: INSULIN GLARGINE 100 UNITS/ML SUB-Q SCH ×2 (10:00→22:00)
[2021-09-03 10:58] LABS: BUN/Creatinine Ratio 9; Blood Urea Nitrogen 9 mg/dL (9-20); Calcium 9.1 mg/dL (8.4-10.2); Hemolysis Index 0
[2021-09-03] MEDS: INSULIN REGULAR, HUMAN 100 UNITS/1 ML SUB-Q SCH ×3 (12:36→22:58)
--- NOTE | 2021-09-03 15:01 | Discharge Summary ---
Providers - Providers Date of Admission: 09/02/21 14:44 Date of discharge: 09/03/21 Attending physician: JUDE RUBI MD 09/02/21 14:44 Consult to Physician [CONS] Routine Comment: Consulting Provider: ALEJANDRO JONES Physician Instructions: Reason For Exam: Hyperosmolar nonketotic state in diabetes 09/02/21 14:47 Consult to Dietitian/Nutrition [CONS] Routine Physician Instructions: Diet education Reason For Exam: Hyperosmolar nonketotic state and diabetes Reason for Consult: Nutrition Recommendations Reason for Consult: Diet education 09/03/21 03:37 Consult to Dietitian/Nutrition [CONS] Routine Physician Instructions: Reason For Exam: Reason for Consult: Diet education Primary care physician: ANNITA LOONEY Hospitalization Reason for admission: visual changes Condition: Stable Hospital course: History of present illness: 51-year-old male with a past medical history of obesity, hypertension, CAD with stent placement, and asthma presents to the hospital with complaints of visual changes progressively worsening for several days. Patient states his vision has been blurry for the last 3 days but today while at work he was unable to see anything but colors. Patient states he cannot define shapes. For last several weeks he has had increased thirst, polyuria, and polydipsia. Accu-Chek upon arrival is high. No previous diagnosis of diabetes prior to today. Patient was here August 17 under the name: Dhruv Stephen III with an alternative medical re cord number. Use prescribed empiric antibiotics for tonsillitis at that time and hydrocodone for pain. Patient discontinued medication because he felt they were causing his current symptoms. He does report that his dental pain did improve. No fever reported Hospital Course to date: 09/03: BG optimized. in 200's now. Will discharge home with both long acting and short acting insulin as well as rx for diabetic supplies. He will also get rx for anti-HTN meds. He was advised to follow up with primary care physician. Assessment and Plan (1) Hyperosmolar non-ketotic state due to type 2 diabetes mellitus Current Visit: Yes Status: Acute Plan to address problem: DKA protocol for now No DKA Hyperosmolar state and diabetes-nonketotic and not in coma IV insulin IV fluids for now No metabolic acidosis No ketones in the urine Transition him to long-acting in a.m. and short acting insulin before each sara Counseled about diabetes Dietitian consult ICU admission because of IV insulin (2) Visual disturbance Current Visit: Yes Status: Acute Plan to address problem: Secondary to high glucose levels causing increased density of the ocular lens--- retaining more fluid Should resolve with correction of blood glucose levels but may take 1 to 2 weeks Patient also to see ophthalmology for visualizing the retina and the need for eyeglasses Visual disturbance will improve with correction of blood glucose levels No acute injury (3) Hypertension Current Visit: Yes Status: Chronic Qualifiers: Hypertension type: primary hypertension Qualified Code(s): I10 - Essential (primary) hypertension Plan to address problem: Continue antihypertensives and adjust medications (4) DVT prophylaxis Current Visit: Yes Status: Acute Plan to address problem: On heparin and GI prophylaxis (5) Advance care planning Current Visit: Yes Status: Acute Plan to address problem: Disease education conducted, care plan discussed, diagnosis discussed, prognosis discussed. Patient is full code. Patient acknowledges understanding and agreement with care plan +30 minutes. Disposition: 01 HOME / SELF CARE / HOMELESS Final Discharge Diagnosis (Prints w/discharge instructions): Hyperosmolar no nketotic hyperglycemic state, type 2 diabetes mellitus with hyperglycemia. Time spent for discharge: 35 Core Measure Documentation - Palliative Care Palliative Care/ Comfort Measures: Not Applicable - Core Measures Any of the following diagnoses?: none Exam - Physical Exam Narrative exam: General appearance: Present: no acute distress, well-nourished - EENT Eyes: Present: PERRL ENT: hearing intact, clear oral mucosa - Neck Neck: Present: supple, normal ROM - Respiratory Respiratory effort: normal Respiratory: bilateral: CTA - Cardiovascular Heart rate: 98 Rhythm: regular Heart Sounds: Present: S1 & S2. Absent: rub, click - Extremities Extremities: pulses symmetrical, No edema Peripheral Pulses: within normal limits - Abdominal General gastrointestinal: Present: soft, non-tender, non-distended, normal bowel sounds Male genitourinary: Present: normal - Integumentary Integumentary: Present: clear, warm, dry - Musculoskeletal Musculoskeletal: gait normal, strength equal bilaterally - Psychiatric Psychiatric: appropriate mood/affect, intact judgment & insight - Neurologic Neurologic: CNII-XII intact, moves all extremities - Constitutional Vitals: Temp Pulse Resp BP Pulse Ox 98.5 F 68 18 147/85 98 09/03/21 08:51 09/03/21 14:08 09/03/21 12:54 09/03/21 08:51 09/03/21 12:54 Plan Follow up with: ANNITA LOONEY MD [Primary Care Provider] - 3-5 Days Prescriptions: amLODIPine 10 mg PO DAILY 30 Days #30 tab Valsartan [Diovan] 160 mg PO BID 30 Days #60 tablet Insulin NPH Hum/Reg Insulin Hm [HumuLIN 70-30 Vial] 30 unit SQ BID 30 Days #3 vial Metformin HCl [metFORMIN] 1,000 mg PO BID 30 Days #60 tab Other Discharge Orders: Glucometer (Amb) Location: None Selected Glucometer supplies[Amb] Location: None Selected
[2021-09-03 16:38] LABS: BUN/Creatinine Ratio 8; Blood Urea Nitrogen 9 mg/dL (9-20); Calcium 9.2 mg/dL (8.4-10.2); Hemolysis Index 4
[2021-09-03] MEDS: VALSARTAN 160MG TAB PO SCH (22:57)
[2021-09-03] MEDS: INSULIN GLARGINE 100 UNITS/ML SUB-Q SCH (23:12)
[2021-09-04] MEDS: amLODIPine 10 MG TAB PO SCH ×2 (07:25→09:53)
[2021-09-04] MEDS: INSULIN LISPRO 100 UNIT/ML SUB-Q SCH ×3 (07:43→18:30)
[2021-09-04] MEDS: INSULIN REGULAR, HUMAN 100 UNITS/1 ML SUB-Q SCH ×3 (07:44→18:30)
[2021-09-04] MEDS: HEPARIN 5,000 UNIT/1 ML VIAL SUB-Q SCH ×2 (09:53→22:25)
[2021-09-04] MEDS: INSULIN GLARGINE 100 UNITS/ML SUB-Q SCH (09:53)
[2021-09-04] MEDS: VALSARTAN 160MG TAB PO SCH ×2 (09:53→22:25)
--- NOTE | 2021-09-04 11:43 | Discharge Summary ---
Providers - Providers Date of Admission: 09/02/21 14:44 Date of discharge: 09/05/21 Attending physician: SHANELLE BOBBY 09/02/21 14:47 Consult to Dietitian/Nutrition [CONS] Routine Physician Instructions: Diet education Reason For Exam: Hyperosmolar nonketotic state and diabetes Reason for Consult: Nutrition Recommendations Reason for Consult: Diet education 09/03/21 03:37 Consult to Dietitian/Nutrition [CONS] Routine Physician Instructions: Reason For Exam: Reason for Consult: Diet education Primary care physician: ANNITA LOONEY Hospitalization Reason for admission: Hyperosmolar nonketotic syndrome Condition: Stable Hospital course: 51-year-old male with a past medical history of obesity, hypertension, CAD with stent placement, and asthma presents to the hospital with complaints of visual changes progressively worsening for several days. Patient states his vision has been blurry for the last 3 days but today while at work he was unable to see anything but colors. Patient states he cannot define shapes. For last several weeks he has had increased thirst, polyuria, and polydipsia. Accu-Chek upon arrival is high. No previous diagnosis of diabetes prior to today. Patient was here August 17 under the name: Dhruv Stephen III with an alternative medical record number. Use prescribed empiric antibiotics for tonsillitis at that time and hydrocodone for pain. Patient discontinued medication because he felt they were causing his current symptoms. He does report that his dental pain did improve. No fever reported Hospital Course to date: 09/03: BG optimized. in 200's now. Will discharge home with both long acting and short acting insulin as well as rx for diabetic supplies. He will also get rx for anti-HTN meds. He was advised to follow up with primary care physician. 09/04: Patient's discharge was held yesterday secondary to BG size 330. BG has remained stable this a.m. and patient will be discharged home with both long acting and short acting insulin as well as rx for diabetic supplies. He will also get rx for anti-HTN meds. He was advised to follow up with primary care physician. Assessment and Plan (1) Hyperosmolar non-ketotic state due to type 2 diabetes mellitus Current Visit: Yes Status: Acute Plan to address problem: DKA protocol for now No DKA Hyperosmolar state and diabetes-nonketotic and not in coma IV insulin IV fluids for now No metabolic acidosis No ketones in the urine Transition him to long-acting in a.m. and short acting insulin before each sara Counseled about diabetes Dietitian consult ICU admission because of IV insulin (2) Visual disturbance Current Visit: Yes Status: Acute Plan to address problem: Secondary to high glucose levels causing increased density of the ocular lens--- retaining more fluid Should resolve with correction of blood glucose levels but may take 1 to 2 weeks Patient also to see ophthalmology for visualizing the retina and the need for eyeglasses Visual disturbance will improve with correction of blood glucose levels No acute injury (3) Hypertension Current Visit: Yes Status: Chronic Qualifiers: Hypertension type: primary hypertension Qualified Code(s): I10 - Essential (primary) hypertension Plan to address problem: Continue antihypertensives and adjust medications Disposition: 01 HOME / SELF CARE / HOMELESS Final Discharge Diagnosis (Prints w/discharge instructions): Hyperosmolar nonketotic syndrome, accelerated hypertension Core Measure Documentation - Palliative Care Palliative Care/ Comfort Measures: Not Applicable - Core Measures Any of the following diagnoses?: none Exam - Constitutional Vitals: Temp Pulse Resp BP Pulse Ox 98.6 F 79 22 147/97 96 09/04/21 08:39 09/04/21 08:39 09/04/21 08:39 09/04/21 08:39 09/04/21 08:39 General appearance: Present: no acute distress, well-nourished - EENT Eyes: Present: PERRL ENT: hearing intact, clear oral mucosa - Neck Neck: Present: supple, normal ROM - Respiratory Respiratory effort: normal Respiratory: bilateral: CTA - Cardiovascular Heart Sounds: Present: S1 & S2. Absent: rub, click - Extremities Extremities: pulses symmetrical, No edema Peripheral Pulses: within normal limits - Abdominal General gastrointestinal: Present: soft, non-tender, non-distended, normal bowel sounds Male genitourinary: Present: normal - Integumentary Integumentary: Present: clear, warm, dry - Musculoskeletal Musculoskeletal: gait normal, strength equal bilaterally - Psychiatric Psychiatric: appropriate mood/affect, intact judgment & insight - Neurologic Neurologic: CNII-XII intact, moves all extremities Plan Activity: advance as tolerated Weight Bearing Status: Weight Bear as Tolerated Diet: diabetic Follow up with: ANNITA LOONEY MD [Primary Care Provider] - 3-5 Days Forms: Work/School Release Form Prescriptions: amLODIPine 10 mg PO DAILY 30 Days #30 tab Valsartan [Diovan] 160 mg PO BID 30 Days #60 tablet Insulin NPH Hum/Reg Insulin Hm [HumuLIN 70-30 Vial] 30 unit SQ BID 30 Days #3 vial Metformin HCl [metFORMIN] 1,000 mg PO BID 30 Days #60 tab Other Discharge Orders: Glucometer (Amb) Location: None Selected Glucometer supplies[Amb] Location: None Selected
[2021-09-04] MEDS ORDERED: FLU VACC QUAD 2021-22(6MOS UP)/PF 60 MCG/0.5 ML SYRINGE IM ONE (12:00)
[2021-09-04] MEDS: SODIUM CHLORIDE 0.9% 1000 ML 1,000 ML IV SCH (15:00)
[2021-09-04] MEDS: metFORMIN 500 MG TAB PO SCH (18:29)
[2021-09-04] MEDS: INSULIN NPH/REGULAR 70/30 INJ SUB-Q SCH (18:29)
[2021-09-05] MEDS: INSULIN REGULAR, HUMAN 100 UNITS/1 ML SUB-Q SCH ×3 (00:30→12:18)
[2021-09-05] MEDS: INSULIN LISPRO 100 UNIT/ML SUB-Q SCH ×3 (02:41→12:18)
[2021-09-05] MEDS: SODIUM CHLORIDE 0.9% 1000 ML 1,000 ML IV SCH (02:45)
[2021-09-05] MEDS: INSULIN NPH/REGULAR 70/30 INJ SUB-Q SCH (08:56)
[2021-09-05] MEDS: metFORMIN 500 MG TAB PO SCH (09:00)
[2021-09-05] MEDS: HEPARIN 5,000 UNIT/1 ML VIAL SUB-Q SCH (09:26)
[2021-09-05] MEDS: VALSARTAN 160MG TAB PO SCH (09:33)
[2021-09-05] MEDS: amLODIPine 10 MG TAB PO SCH (09:36)
[2021-09-05 12:42] VITALS: BP 143/94
--- NOTE | 2021-09-05 13:30 | Progress Note ---
Assessment and Plan Assessment and plan: 51-year-old male with a past medical history of obesity, hypertension, CAD with stent placement, and asthma presents to the hospital with complaints of visual changes progressively worsening for several days. Patient states his vision has been blurry for the last 3 days but today while at work he was unable to see anything but colors. Patient states he cannot define shapes. For last several weeks he has had increased thirst, polyuria, and polydipsia. Accu-Chek upon arrival is high. No previous diagnosis of diabetes prior to today. Patient was here August 17 under the name: Dhruv Stephen III with an alternative medical record number. Use prescribed empiric antibiotics for tonsillitis at that time and hydrocodone for pain. Patient discontinued medication because he felt they were causing his current symptoms. He does report that his dental pain did improve. No fever reported Hospital Course to date: 09/03: BG optimized. in 200's now. Will discharge home with both long acting and short acting insulin as well as rx for diabetic supplies. He will also get rx for anti-HTN meds. He was advised to follow up with primary care physician. 09/04: Blood glucose still elevated in the 300 range. Long-acting insulin adjusted. We will hold discharge and monitor closely History Interval history: No new issues overnight. Hospitalist Physical - Constitutional Vitals: Temp Pulse Resp BP Pulse Ox 98.4 F 76 17 143/94 94 09/05/21 12:00 09/05/21 12:00 09/05/21 12:00 09/05/21 12:00 09/05/21 12:00 General appearance: Present: no acute distress, well-nourished - EENT Eyes: Present: PERRL, EOM intact ENT: hearing intact, clear oral mucosa, dentition normal - Neck Neck: Present: supple, normal ROM - Respiratory Respiratory effort: normal Respiratory: bilateral: CTA - Cardiovascular Rhythm: regular Heart Sounds: Present: S1 & S2. Absent: gallop, rub - Extremities Extremities: no ischemia, No edema, Full ROM - Abdominal General gastrointestinal: soft, non-tender, non-distended, normal bowel sounds - Integumentary Integumentary: Present: clear, warm, dry - Neurologic Neurologic: CNII-XII intact, moves all extremities Results - Labs CBC & Chem 7: 09/03/21 05:04 09/03/21 15:27 Labs: Laboratory Last Values WBC 11.4 K/mm3 (4.5-11.0) H 09/03/21 05:04 RBC 5.74 M/mm3 (3.65-5.03) H 09/03/21 05:04 Hgb 13.3 gm/dl (11.8-15.2) 09/03/21 05:04 Hct 43.2 % (35.5-45.6) 09/03/21 05:04 MCV 75 fl (84-94) L 09/03/21 05:04 MCH 23 pg (28-32) L 09/03/21 05:04 MCHC 31 % (32-34) L 09/03/21 05:04 RDW 21.0 % (13.2-15.2) H 09/03/21 05:04 Plt Count 235 K/mm3 (140-440) 09/03/21 05:04 Lymph % (Auto) 27.9 % (13.4-35.0) 09/03/21 05:04 Wright % (Auto) 10.7 % (0.0-7.3) H 09/03/21 05:04 Eos % (Auto) 2.7 % (0.0-4.3) 09/03/21 05:04 Baso % (Auto) 0.8 % (0.0-1.8) 09/03/21 05:04 Lymph # (Auto) 3.2 K/mm3 (1.2-5.4) 09/03/21 05:04 Wright # (Auto) 1.2 K/mm3 (0.0-0.8) H 09/03/21 05:04 Eos # (Auto) 0.3 K/mm3 (0.0-0.4) 09/03/21 05:04 Baso # (Auto) 0.1 K/mm3 (0.0-0.1) 09/03/21 05:04 Seg Neutrophils % 57.9 % (40.0-70.0) 09/03/21 05:04 Seg Neutrophils # 6.6 K/mm3 (1.8-7.7) 09/03/21 05:04 ABG pH 7.398 pH Units (7.350-7.450) 09/03/21 03:20 ABG pCO2 41.7 mm Hg 09/03/21 03:20 ABG pO2 66.0 mm Hg (80.0-90.0) L 09/03/21 03:20 ABG HCO3 25.1 mmol/L (20.0-26.0) 09/03/21 03:20 ABG O2 Saturation 94.7 % (95.0-99.0) L 09/03/21 03:20 ABG O2 Content 16.9 (0.0-44) 09/03/21 03:20 ABG Base Excess 0.2 mmol/L (-2.0-3.0) 09/03/21 03:20 ABG Hemoglobin 13.0 gm/dl (14.0-18.0) L 09/03/21 03:20 ABG Carboxyhemoglobin 2.1 % (0.0-5.0) 09/03/21 03:20 ABG Methemoglobin 0.5 % (0.0-1.5) 09/03/21 03:20 VBG pH 7.335 (7.320-7.420) 09/02/21 08:48 Oxyhemoglobin 92.2 % (95.0-99.0) L 09/03/21 03:20 FiO2 21 % 09/03/21 03:20 Sodium 134 mmol/L (137-145) L 09/03/21 15:27 Potassium 4.1 mmol/L (3.6-5.0) 09/03/21 15:27 Chloride 98.3 mmol/L (98-107) 09/03/21 15:27 Carbon Dioxide 25 mmol/L (22-30) 09/03/21 15:27 Anion Gap 15 mmol/L 09/03/21 15:27 BUN 9 mg/dL (9-20) 09/03/21 15:27 Creatinine 1.1 mg/dL (0.8-1.3) 09/03/21 15:27 Estimated GFR > 60 ml/min 09/03/21 15:27 BUN/Creatinine Ratio 8 % 09/03/21 15:27 Glucose 281 mg/dL (75-100) H 09/03/21 15:27 POC Glucose 167 mg/dL (70-105) H 09/05/21 00:52 Calcium 9.2 mg/dL (8.4-10.2) 09/03/21 15:27 Phosphorus 3.20 mg/dL (2.5-4.5) D 09/02/21 22:12 Magnesium 2.20 mg/dL (1.7-2.3) 09/02/21 22:12 Total Bilirubin 0.60 mg/dL (0.1-1.2) 09/03/21 05:04 AST 46 units/L (5-40) H 09/03/21 05:04 ALT 46 units/L (7-56) 09/03/21 05:04 Alkaline Phosphatase 157 units/L (35-129) H 09/03/21 05:04 Total Protein 7.3 g/dL (6.3-8.2) 09/03/21 05:04 Albumin 3.5 g/dL (3.9-5) L 09/03/21 05:04 Albumin/Globulin Ratio 0.9 % 09/03/21 05:04 Urine Color Colorless (Yellow) 09/02/21 09:48 Urine Turbidity Clear (Clear) 09/02/21 09:48 Urine pH 6.0 (5.0-7.0) 09/02/21 09:48 Ur Specific [place] 1.026 (1.003-1.030) 09/02/21 09:48 Urine Protein <15 mg/dl mg/dL (Negative) 09/02/21 09:48 Urine Glucose (UA) >=500 mg/dL (Negative) 09/02/21 09:48 Urine Ketones Neg mg/dL (Negative) 09/02/21 09:48 Urine Blood Mod (Negative) 09/02/21 09:48 Urine Nitrite Neg (Negative) 09/02/21 09:48 Urine Bilirubin Neg (Negative) 09/02/21 09:48 Urine Urobilinogen < 2.0 mg/dL (<2.0) 09/02/21 09:48 Ur Leukocyte Esterase Neg (Negative) 09/02/21 09:48 Urine WBC (Auto) 6.0 /HPF (0.0-6.0) 09/02/21 09:48 Urine RBC (Auto) 5.0 /HPF (0.0-6.0) 09/02/21 09:48 U Epithel Cells (Auto) 1.0 /HPF (0-13.0) 09/02/21 09:48 Simon/IV: Voiding Method Urinal Active Medications - Current Medications Current Medications: Generic Name Dose Route Start Last Admin Trade Name Freq PRN Reason Stop Dose Admin Acetaminophen 650 mg 09/02/21 14:44 Acetaminophen 325 Mg Tab PO Q4H PRN Pain MILD(1-3)/Fever >100.5/CARDENAS Amlodipine Besylate 10 mg 09/03/21 19:00 09/05/21 09:36 Amlodipine 10 Mg Tab PO 10 mg QDAY QUINCY Administration Dextrose 0 ml 09/02/21 14:55 Dextrose 10% *Hypoglycemia IV PRN PRN Hypoglycemia Heparin Sodium (Porcine) 5,000 unit 09/02/21 15:00 09/05/21 09:26 Heparin 5,000 Unit/1 Ml Vial SUB-Q 5,000 unit Q12HR QUINCY Administration Sodium Chloride 1,000 mls @ 100 mls/hr 09/03/21 02:45 09/05/21 02:45 Nacl 0.9% 1000 Ml IV 100 mls/hr DIRECT QUINCY Administration Insulin Human Isoph/Insulin Regular 30 unit 09/04/21 17:00 09/05/21 08:56 Insulin Nph/Regular 70/30 Inj SUB-Q 30 unit BIDDIAB QUINCY Administration Insulin Human Lispro 0 unit 09/03/21 06:00 09/05/21 12:18 Insulin Lispro 100 Unit/Ml SUB-Q 6 unit Q6HR QUINCY Administration Protocol Insulin Human Regular 10 units 09/03/21 19:46 09/05/21 12:18 Insulin Regular, Human 100 Units/1 Ml SUB-Q 10 units Q6HR QUINCY Administration Metformin HCl 1,000 mg 09/04/21 17:00 09/05/21 09:00 Metformin 500 Mg Tab PO 1,000 mg BIDDIAB QUINCY Administration Morphine Sulfate 2 mg 09/02/21 14:44 Morphine 2 Mg/1 Ml Inj IV Q4H PRN Pain, Moderate (4-6) Ondansetron HCl 4 mg 09/02/21 14:44 09/04/21 12:56 Ondansetron 4 Mg/2 Ml Inj IV 4 mg Q8H PRN Administration Nausea And Vomiting Oxycodone/Acetaminophen 1 tab 09/02/21 14:44 09/04/21 10:00 Oxycodone /Acetaminophen 5-325mg Tab PO 1 tab Q6H PRN Administration Pain, Moderate (4-6) Sodium Chloride 10 ml 09/02/21 22:00 09/05/21 09:41 Sodium Chloride 0.9% 10 Ml Flush Syringe IV 10 ml BID QUINCY Administration Sodium Chloride 10 ml 09/02/21 14:44 Sodium Chloride 0.9% 10 Ml Flush Syringe IV PRN PRN LINE FLUSH Valsartan 160 mg 09/03/21 22:00 09/05/21 09:33 Valsartan 160mg Tab PO 160 mg BID QUINCY Administration Nutrition/Malnutrition Assess - Dietary Evaluation Nutrition/Malnutrition Findings: Nutrition Notes Start: 09/02/21 16:22 Freq: Status: Active Protocol: Document 09/02/21 16:22 AMRITA (Rec: 09/02/21 16:34 AMRITA [email or web address]) Nutrition Notes Need for Assessment generated from: MD Order,Education Initial or Follow up Brief Note Current Diagnosis Coronary Artery Disease, Diabetes,Hypertension Other Pertinent Diagnosis Visual Changes/New Onset Diabetes. Current Diet No current diet prescribed. Height 6 ft 3 in Weight 148.325 kg [place] Body Weight (kg) 89.09 BMI 40.8 Weight change and time frame None provided at admission. Weight Status Morbidly Obese Subjective/Other Information RD consult for Nutrition Education. No current diet prescribed. Pt still in ED, not a candidate for Nutrition Education at the time, will assess feasibility on F/U. Percent of energy/protein needs met: No current diet prescribed. Nutrition Intervention Follow-Up By: 09/07/21 Additional Comments Nutrition education will be provided on F/U, if feasible. Continue monitoring food tolerance, %PO intake of meals , and BM.
--- NOTE | 2021-09-05 14:15 | Electrocardiograph Report ---
[facility] Test Date: 2021-09-03 Test Time: 10:25:22 Pat Name: BHAVESH YING Department: Room: A472 1 Gender: M Telehealth Nurse: ARTIS : [id number] Requested By: JUDE RUBI Order Number: [id number] Reading MD: Attila Rosas Measurements Intervals [place] Rate: 37 P: 33 CT: 255 QRS: -62 QRSD: 133 T: 32 QT: 434 QTc: 369 Interpretive Statements Sinus bradycardia Followed by a 2.6-second pause and ventricular escape Left axis deviation Left ventricle hypertrophy Abnormal ECG No previous ECG available for comparison Electronically Signed On 09-05-2021 14:15:09 EDT by Attila Rosas
== END 2021-09-05 16:27 | disposition home or self-care (01) ==
LOC: EDSEX → ED 08:02 → INTOOBSV 14:44 → CC1 14:44 → 4A 09-03 03:47
PROVIDERS: ADMIT Internal Medicine; ATTEND Hospitalist
DX: E11.00 Type 2 diabetes mellitus with hyperosmolarity without nonketotic hyperglycemic-hyperosmolar coma (NKHHC) (principal); H53.8 Other visual disturbances; I10 Essential (primary) hypertension; J45.909 Unspecified asthma, uncomplicated; E11.65 Type 2 diabetes mellitus with hyperglycemia; E66.9 Obesity, unspecified; F17.200 Nicotine dependence, unspecified, uncomplicated; Z68.41 Body mass index [BMI] 40.0-44.9, adult; Z95.1 Presence of aortocoronary bypass graft; Z79.4 Long term (current) use of insulin
CPT/HCPCS: 36415; 80048; 80053; 81001; 82803; 82805; 82962; 83735; 84100; 85025; 93005; 96361; 96372; 96374; 96375; 96376; 99285; G0378; J1644; J2405; J7030; Q0162; Q0177; Q9967; J1815